=== PATIENT | male | born 1995 | race Caucasian/White ===

== ENCOUNTER 2018-11-24 18:28 | Emergency (ER) | payer OTHER ==
[~2018-11-24] VITALS: Ht 180.3 cm; Wt 70.5 kg
[2018-11-24] MEDS ORDERED: QUETIAPINE FUMA50 MG PO (19:33)
[2018-11-24] MEDS ORDERED: DEPAKENE 2250 MG/5 M PO (19:34)
[2018-11-24] MEDS ORDERED: DIPHENHYDRAM25 MG PO (19:36)
[2018-11-24] MEDS ORDERED: AUGMENTIN875TAB PO (19:37)
[2018-11-24] MEDS ORDERED: QUETIAPINE FUM100 MG PO (19:37)
[2018-11-24] MEDS ORDERED: NALTREXONE50 MG PO (19:38)
[2018-11-24 20:55] VITALS: BP 127/78
== END 2018-11-24 21:00 | disposition designated cancer center or children's hospital (05) | DRG 923 ==
LOC: ED 18:28
DX: T76.21XA Adult sexual abuse, suspected, initial encounter (principal); K62.89 Other specified diseases of anus and rectum; N48.89 Other specified disorders of penis; R07.9 Chest pain, unspecified; F25.9 Schizoaffective disorder, unspecified; Y92.149 Unspecified place in prison as the place of occurrence of the external cause

== ENCOUNTER 2019-05-05 20:07 | Emergency (ER) | payer OTHER ==
[~2019-05-05] VITALS: Ht 180.3 cm; Wt 90.0 kg
[~2019-05-05 20:07] MED LIST: AUGMENTIN875TAB PO; DEPAKENE 2250 MG/5 M PO; DIPHENHYDRAM25 MG PO; NALTREXONE50 MG PO; QUETIAPINE FUM100 MG PO; QUETIAPINE FUMA50 MG PO
[2019-05-05 20:15] VITALS: BP 145/78
[2019-05-05] MEDS ORDERED: KEFLEX500 M1 PO (21:13)
[2019-05-05] MEDS ORDERED: BACTROBAN TOP (21:14)
== END 2019-05-05 21:20 | disposition designated cancer center or children's hospital (05) | DRG 914 ==
LOC: ED 20:07
DX: S51.042A Puncture wound with foreign body of left elbow, initial encounter (principal); S61.552A Open bite of left wrist, initial encounter; F25.9 Schizoaffective disorder, unspecified; X79.XXXA Intentional self-harm by blunt object, initial encounter; X83.8XXA Intentional self-harm by other specified means, initial encounter; Y92.149 Unspecified place in prison as the place of occurrence of the external cause

== ENCOUNTER 2021-02-19 21:03 | Emergency (ER) | payer OTHER ==
[~2021-02-19] VITALS: Ht 180.3 cm; Wt 74.0 kg
[~2021-02-19 21:03] MED LIST changes: +BACTROBAN TOP; +KEFLEX500 M1 PO
[2021-02-19] MEDS ORDERED: TAMSULOSIN HCL0.4 MG PO (21:50)
[2021-02-19] MEDS ORDERED: QUETIAPINE FUM400 MG PO (21:51)
[2021-02-19] MEDS ORDERED: NALTREXONE50 MG PO (21:52)
[2021-02-19] MEDS ORDERED: DIVALPROEX SOD500 MG PO (21:53)
[2021-02-19] MEDS ORDERED: DIPHENHYDRAM25 MG PO (21:54)
[2021-02-19] MEDS ORDERED: FLUOXETINE20 MG PO (21:55)
[2021-02-19 23:16] VITALS: BP 145/71
== END 2021-02-19 23:24 | disposition designated cancer center or children's hospital (05) | DRG 605 ==
LOC: ED 21:03
DX: S01.01XA Laceration without foreign body of scalp, initial encounter (principal); F25.9 Schizoaffective disorder, unspecified; X79.XXXA Intentional self-harm by blunt object, initial encounter; Y92.149 Unspecified place in prison as the place of occurrence of the external cause

== ENCOUNTER 2022-04-16 09:54 | Emergency (ER) | payer OTHER ==
[~2022-04-16] VITALS: Ht 180.3 cm; Wt 95.9 kg
[~2022-04-16 09:54] MED LIST changes: +DIVALPROEX SOD500 MG PO; +FLUOXETINE20 MG PO; +QUETIAPINE FUM400 MG PO; +TAMSULOSIN HCL0.4 MG PO
[2022-04-16 10:16] VITALS: BP 130/100
[2022-04-16 10:30] VITALS: BP 137/90
[2022-04-16 11:00] VITALS: BP 128/75
[2022-04-16 11:30] VITALS: BP 135/83
[2022-04-16 11:39] VITALS: BP 135/83
== END 2022-04-16 12:56 | disposition home or self-care (01) | DRG 605 ==
LOC: ED 09:54
PROC: 2W3EX1Z Immobilization of Right Hand using Splint (ICD-10-PCS; principal; 2022-04-16)
DX: S60.221A Contusion of right hand, initial encounter (principal); F25.9 Schizoaffective disorder, unspecified; W22.09XA Striking against other stationary object, initial encounter; Y92.149 Unspecified place in prison as the place of occurrence of the external cause

== ENCOUNTER 2022-06-27 20:41 | Emergency (ER) | payer OTHER ==
[2022-06-27] VITALS (7 sets, daily range): BP systolic 111–125; BP diastolic 74–84
[~2022-06-27] VITALS: Ht 180.3 cm; Wt 94.0 kg
== END 2022-06-27 22:45 | disposition designated cancer center or children's hospital (05) | DRG 605 ==
LOC: ED 20:41
DX: S10.80XA Unspecified superficial injury of other specified part of neck, initial encounter (principal); X83.8XXA Intentional self-harm by other specified means, initial encounter; S00.83XA Contusion of other part of head, initial encounter; S00.81XA Abrasion of other part of head, initial encounter; W19.XXXA Unspecified fall, initial encounter; Y92.148 Other place in prison as the place of occurrence of the external cause; F32.A Depression, unspecified; F25.9 Schizoaffective disorder, unspecified; Z91.52 Personal history of nonsuicidal self-harm

== ENCOUNTER 2024-04-28 18:06 | Observation (INO) | payer OTHER ==
[~2024-04-28] VITALS: Ht 180.3 cm; Wt 89.0 kg
[2024-04-28] VITALS (22 sets, daily range): BP systolic 97–138; BP diastolic 49–91
[2024-04-28 18:52] LABS: BASO% 0.3 % (0-3); EOS% 2.7 % (0-8); HEMATOCRIT 44.9 % (39.0-50.0); HEMOGLOBIN 15.4 g/dl (14.0-18.0); IMMATURE GRANULOCYTES 0.1 % (0.0-5.0); LYMPH% 17.8 % (15-41); MEAN CORPUSCULAR HGB 31.6 pG CALC (26.0-32.0); MEAN CORPUSCULAR HGB CONC 34.3 g/dL CAL (32.0-36.0); MONO% 5.1 % (2-13); NEUT# 6.63 thou/uL (1.82-7.42); RED BLOOD COUNT 4.88 mill/uL (4.70-6.10); RED CELL DISTRI WIDTH 12.9 % (11.5-15.5)
[2024-04-28 18:55] LABS: URINE BILIRUBIN - DIPSTICK Negative (NEGATIVE); URINE BLOOD DIPSTICK Negative (NEGATIVE); URINE COLOR Yellow; URINE GLUCOSE - DIPSTICK Negative (NEGATIVE); URINE KETONE Negative (NEGATIVE); URINE LEUK ESTERASE Negative (NEGATIVE); URINE NITRITE - DIPSTICK Negative (Negative); URINE PROTEIN - DIPSTICK Negative (NEG-TRACE); URINE UROBILINOGEN - DIPSTICK 0.2 E.U./dL (0.2)
[2024-04-28 19:02] LABS: ALBUMIN 4.8 g/dL (3.2-5.0); ALKALINE PHOSPHATASE 56 u/l (38-126); ANION GAP 12 (6-22 (CALC)); BILIRUBIN, TOTAL 0.5 mg/dL (0.2-1.3); BUN 21 mg/dL (9-20); BUN/CREATININE RATIO 18 (12-20 (CALC)); CARBON DIOXIDE 25 mmol/l (22-30); CHLORIDE 105 mmol/l (95-108); CREATININE 1.1 mg/dL (0.7-1.3); ESTIMATED GFR 94 ML/MIN (>=90 (CALC)); ETHYL ALCOHOL 0 mg/dl (0-30); POTASSIUM 3.5 mmol/l (3.5-5.1); SGOT/AST 32 u/l (17-59); SODIUM 139 mmol/l (137-146); TOTAL PROTEIN 8.5 g/dL (6.3-8.2)
--- NOTE | 2024-04-28 19:36 | NUR ---
PT IN CT.
--- NOTE | 2024-04-28 20:38 | NUR ---
NEURO CART TO ROOM. TELENEUROLGY CALLED AND WILL BE COMIING UP ON CART.
[2024-04-28] MEDS ORDERED: DiphenhydrAMINE HCL 50 MG/ML SDV IV ONE (21:05)
[2024-04-28] MEDS ORDERED: METOCLOPRAMIDE HCL 10 MG/2 ML SDV IV ONE (21:10)
[2024-04-28] MEDS ORDERED: MECLIZINE HCL 25 MG/TAB PO ONE (21:10)
[2024-04-28] MEDS ORDERED: SODIUM CHLORIDE 0.9% 1,000 ML IV ONE (21:10)
--- NOTE | 2024-04-28 21:30 | NUR ---
PT EVALUATED ON TELESTROKE.
--- NOTE | 2024-04-28 21:45 | NUR ---
PT RESTING. MEDICATED. VSS. GUARDS AT BEDSIDE. BLANKETS GIVEN.
[2024-04-29] VITALS: BP 88/53
[2024-04-29 00:15] VITALS: BP 93/50
--- NOTE | 2024-04-29 00:15 | NUR ---
REPORT TO MONROE/RENETTA.
--- NOTE | 2024-04-29 00:28 | NUR ---
TO FLOOR VIA STRETCHER WITH CARMELO/ALLEY CLEANER. PT RESTING. POCKET MONITOR ON.
[2024-04-29 00:35] VITALS: BP 111/61
[2024-04-29] MEDS ORDERED: ONDANSETRON 4 MG/TAB ODT PO PRN (00:40)
[2024-04-29] MEDS ORDERED: ALUM & MAG HYDROX-SIMETHICONE 30 ML PO PRN (00:40)
[2024-04-29] MEDS ORDERED: ACETAMINOPHEN 500 MG TAB PO PRN (00:40)
[2024-04-29] MEDS ORDERED: Levofloxacin 750 mg Premix 150 ML IV SCH (01:00)
--- NOTE | 2024-04-29 01:00 | NUR ---
REPORT RECEIVED FROM ED NURSE. YUDELKA CHONG RN. PT TRANSPORTED TO MED SURG ROOM 280 WITH NURSING NUPERVISOR. TWO GUARDS PRESENT WITH PT. PT IS A&O X3, AND ABLE TO MAKE NEEDS KNOWN. LUNG SOUNDS CLEAR UPON AUSUCLTATION. BOWEL SOUNDS ACTIVE X4 QUADRANTS. PT STATES THAT HIS LAST BM IS UNKOWN. ABDOMEN SOFT TO TOUCH WITH NO TENDERNESS. PT DENIES PAIN, NAUSEA, OR VOMITING. PERIPHERAL PULSES ARE STRONG. SEIZURE PRECAUTIONS IN PLACE DUE TO PT HISTORY. #18 NOTED TO THE (R) HAND, SL. TELE MONITOR IN PLACE. HANDCUFF NOTED TO PT (L) ANKLE. CAP REFILL TO (L) GREATER TOE IS BRISK, -3 SECONDS. PT DOES NOT OFFER ANY COMPLAINTS AT THIS TIME. STATES THAT HE IS HUNGRY, ASSIGNED NON MORSE INTERCEPT TECHNICIAN OFFERED A WRAP AND ORANGE JUICE TO PT. PT EDUCATED ON POC AND MEDICATION SCHEDULE. CALL LIGHT IN REACH, AND SAFETY PRECAUTIONS IN PLACE. PT MADE IT TO ROOM @ 0027.
[2024-04-29 04:33] VITALS: BP 106/63
--- NOTE | 2024-04-29 05:01 | NUR ---
PT RESTING IN BED WITH EYES CLOSED. GUARDS X2 IN ROOM AT BEDSIDE. NO COMPLAINTS OFFERED FROM PT. NO S&S OF DISTRESS NOTED AT THIS TIME. BED ALARM ACTIVE, AND SEIZURE PRECAUTIONS REMAIN IN PLACE. CALL LIGHT IN REACH, AND SAFETY PRECAUTIONS IN PLACE.
[2024-04-29 06:59] VITALS: BP 117/73
--- NOTE | 2024-04-29 07:40 | NUR ---
PATIENT LAYING IN BED WITH OFFICERS AT BEDSIDE. PATIENT A&OX3 AND ABLE TO MAKE NEEDS KNOWN. PATIENT ABDOMEN SOFT AND NONTENDER, RESPIRATIONS EVEN AND UNLABORED, PEDAL PULSES PRESENT. PATIENT DENIES ANY NEEDS AT THIS TIME. WILL CONTINUE TO MONITOR.
--- NOTE | 2024-04-29 08:18 | NUR ---
PATIENT IS SEEING NEUROLOGY VIA TELEHEALTH
[2024-04-29] MEDS ORDERED: HALDOL5 M1 PO (08:32)
[2024-04-29] MEDS ORDERED: LAMICTAL100 M1 PO (08:33)
[2024-04-29] MEDS ORDERED: PRAZOSIN HYDROCH5 MG PO (08:33)
[2024-04-29] MEDS ORDERED: lamoTRIgine 100 MG/TAB PO SCH (09:00)
[2024-04-29] MEDS ORDERED: MECLIZINE HCL 25 MG/TAB PO SCH (10:00)
[2024-04-29 10:20] VITALS: BP 128/72
[2024-04-29] MEDS ORDERED: MECLIZINE25 MG PO (11:30)
--- NOTE | 2024-04-29 11:48 | NUR ---
PATIENT SITTING UP IN BED. OFFICERS AT BEDSIDE. PATIENT IS HAVING LUNCH AT THIS TIME. WILL CONTINUE TO MONITOR.
--- NOTE | 2024-04-29 12:29 | NUR ---
Discharge instructions given. Patient verbalizes understanding of same. [facility] stable [facility] All belongings sent with pt. PATIENT IV SITE AND TELE MONITOR REMOVED AND PLACED IN NURSING STATION.
== END 2024-04-29 12:30 | disposition designated cancer center or children's hospital (05) | DRG 312 ==
LOC: ED 18:06 → ED-I 22:15 → ED 22:42 → MS2 22:43
PROVIDERS: Family Medicine; ADMIT Internal Medicine; ATTEND Internal Medicine
DX: R55 Syncope and collapse (principal); R42 Dizziness and giddiness; G43.909 Migraine, unspecified, not intractable, without status migrainosus; F25.9 Schizoaffective disorder, unspecified; G40.909 Epilepsy, unspecified, not intractable, without status epilepticus; F65.4 Pedophilia
CPT/HCPCS: G0378